=== PATIENT | female | born 1995 | race American Indian/Alaskan Native ===

== ENCOUNTER 2018-12-17 13:40 | Emergency (ER) | payer OTHER ==
[2018-12-17 14:21] VITALS: BP 145/77
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
[2018-12-17 15:39] LABS: Bilirubin,Urine NEG (Negative); Blood,Urine NEG (Negative); Color,Urine Yellow (Yellow); Mucus,Urine FEW /HPF; Protein,Urine <15 mg/dL mg/dL (Negative); Urobilinogen,Urine < 2.0 mg/dL (<2.0)
[2018-12-17 16:27] LABS: HCG Qualitative,Urine Negative (Negative)
[2018-12-17] MEDS ORDERED: TYLENOL PO ONE (16:46)
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
== END 2018-12-17 18:05 | disposition home or self-care (01) ==
LOC: ED 13:40
DX: M25.511 Pain in right shoulder (principal); M54.5 Low back pain; F41.9 Anxiety disorder, unspecified; E66.01 Morbid (severe) obesity due to excess calories; Z68.44 Body mass index [BMI] 60.0-69.9, adult
CPT/HCPCS: 72100; 81001; 81025